=== PATIENT | female | born 1990 | race Caucasian/White ===

== ENCOUNTER 2021-06-20 01:12 | Emergency (ER) | payer SELFPAY ==
[2021-06-20] MEDS ORDERED: Mag-Al 1200 mg/1200 mg/30 ML UDCUP ONE (02:34)
[2021-06-20] MEDS ORDERED: Lidocaine Viscous Sol 2% 15 ml UD Cup ONE (02:34)
== END 2021-06-20 03:54 | disposition home or self-care (01) ==
LOC: ERS 01:12
DX: K29.70 Gastritis, unspecified, without bleeding (principal); F17.290 Nicotine dependence, other tobacco product, uncomplicated
CPT/HCPCS: 99283